=== PATIENT | female | born 1990 | race Caucasian/White ===

== ENCOUNTER 2016-11-01 09:28 | Emergency (ER) | payer OTHER ==
[~2016-11-01] VITALS: Ht 167.6 cm; Wt 83.9 kg
[~2016-11-01 09:28] MED LIST: CATAPRES0.1 MG PO; FIORICET WI1 CAPSULE PO; IBUPROFEN800 MG PO; MACROBID100 MG PO; MOTRIN800 MG PO; PROMETHAZINE HC25 M1 PO; PROVERA,CYCRIN5 MG PO; RISPERDAL0.25 MG PO; VISTARIL25 MG PO; ~No Medications
[2016-11-01] MEDS ORDERED: ANUSOL HC,ANUCO25 MG PR (11:02)
[2016-11-01] MEDS ORDERED: COLACE100 MG PO (11:03)
[2016-11-01 11:18] VITALS: BP 123/64
== END 2016-11-01 11:18 | disposition home or self-care (01) ==
LOC: EME 09:28
DX: K64.4 Residual hemorrhoidal skin tags (principal); F17.200 Nicotine dependence, unspecified, uncomplicated
CPT/HCPCS: 99281; 99284

== ENCOUNTER 2016-11-17 13:06 | Day surgery (SDC) | payer OTHER ==
[~2016-11-17] VITALS: Ht 167.6 cm; Wt 83.0 kg
[~2016-11-17 13:06] MED LIST changes: +ANUSOL HC,ANUCO25 MG PR; +COLACE100 MG PO
[2016-11-17 13:38] VITALS: BP 104/60
[2016-11-17 13:45] LABS: EOSINOPHIL (%) 1.4 % (0-5); EOSINOPHIL COUNT 0.1 K/uL (0-0.3); HEMATOCRIT 36.9 % (36.0-46.0); IMMATURE GRANULOCYTE (%) 0.3 % (0.0-0.7); LYMPHOCYTE COUNT 1.8 K/uL (1.0-2.8); MCH 30.8 PG (29.0-34.0); MCHC 33.6 G/DL (30.0-36.0); MCV 91.8 FL (83-99); MEAN PLAT.VOLUME 10.8 uM^3 (9.5-12.4); MONOCYTE (%) 6.7 % (3-12); MONOCYTE COUNT 0.4 K/uL (0-0.8); NEUTROPHIL (%) 62.5 % (45-76); PLATELET COUNT 227 K/uL (156-360); RBC DIS.WIDTH-CV 11.9 % (11.8-14.6); RBC DIS.WIDTH-SD 39.8 % (39-53); RED BLOOD COUNT 4.02 M/uL (3.80-5.20); WHITE BLOOD COUNT 6.4 K/uL (4.1-10.2)
[2016-11-17 13:54] LABS: INTER. NORMALIZED RATIO 1.1; PROTHROMBIN TIME 10.7 (9.2-11.2)
[2016-11-17 14:00] LABS: ANION GAP 6 MEQ/L (2-14); CHLORIDE 105 MEQ/L (99-109); POTASSIUM 3.7 MEQ/L (3.7-5.4); SAMPLE HEMOLYSIS CHECK 0; SAMPLE ICTERIC CHECK 0; SAMPLE LIPEMIA CHECK 0; SODIUM 138 MEQ/L (136-147); TOTAL BILIRUBIN 1.2 MG/DL (0.0-1.0)
[2016-11-17 14:06] LABS: ALKALINE PHOSPHATASE 65 IU/L (3-129); GFR ESTIMATE (CALCULATED) > 59 mL/min/; GLUCOSE 82 mg/dL (70-99); UREA NITROGEN (BUN) 11 mg/dL (9-23)
[2016-11-17 14:52] LABS: METH RESISTANT S AUREUS PCR NEGATIVE (NEGATIVE)
[2016-11-17 14:54] LABS: PROBE CHECK PASS; SPECIMEN PROCESSING CONTROL PASS
[2016-11-17] MEDS ORDERED: COLACE100 MG PO (15:32)
[2016-11-17] MEDS ORDERED: METAMUCIL PACKE1 PKT PO (15:32)
[2016-11-17 16:30] VITALS: BP 110/66
[2016-11-17 17:00] VITALS: BP 111/58
[2016-11-18 09:19] LABS: INTERNAL CONTROL VALID? YES
== END 2016-11-17 17:25 | disposition home or self-care (01) ==
LOC: SDC 13:06
PROVIDERS: Thoracic Surgery (Cardiothoracic Vascular Surgery)
DX: K64.8 Other hemorrhoids (principal); K64.4 Residual hemorrhoidal skin tags; F17.210 Nicotine dependence, cigarettes, uncomplicated; Z85.41 Personal history of malignant neoplasm of cervix uteri; Z82.3 Family history of stroke
CPT/HCPCS: 80053; 84703; 85025; 85610; 87641; J0690; J1100; J2250; J2405; J3010

== ENCOUNTER 2017-04-25 21:23 | Emergency (ER) | payer OTHER ==
[~2017-04-25] VITALS: Ht 170.2 cm; Wt 77.7 kg
[~2017-04-25 21:23] MED LIST changes: +METAMUCIL PACKE1 PKT PO
[2017-04-25 22:03] LABS: HEMATOCRIT 39.7 % (36.0-46.0); MCH 31.5 PG (29.0-34.0); MCV 92.5 FL (83-99); MEAN PLAT.VOLUME 10.7 uM^3 (9.5-12.4); PLATELET COUNT 262 K/uL (156-360); RBC DIS.WIDTH-CV 12.3 % (11.8-14.6); RED BLOOD COUNT 4.29 M/uL (3.80-5.20); WHITE BLOOD COUNT 7.4 K/uL (4.1-10.2)
[2017-04-25 22:31] LABS: ANION GAP 9 MEQ/L (2-14); CHLORIDE 105 MEQ/L (99-109); POTASSIUM 3.9 MEQ/L (3.7-5.4); SAMPLE HEMOLYSIS CHECK 0; SAMPLE ICTERIC CHECK 0; SAMPLE LIPEMIA CHECK 0; SODIUM 140 MEQ/L (136-147); TOTAL BILIRUBIN 0.5 MG/DL (0.0-1.0)
[2017-04-25 22:37] LABS: ALKALINE PHOSPHATASE 71 IU/L (3-129); GFR ESTIMATE (CALCULATED) > 59 mL/min/; GLUCOSE 84 mg/dL (70-99); UREA NITROGEN (BUN) 13 mg/dL (9-23)
[2017-04-25 22:39] LABS: QUANTITATIVE HCG < 4.0 MIU/ML
[2017-04-26] MEDS ORDERED: ZANTAC150 MG PO (01:12)
[2017-04-26 01:34] VITALS: BP 126/80
== END 2017-04-26 01:38 | disposition home or self-care (01) ==
LOC: EME 21:23
DX: K29.70 Gastritis, unspecified, without bleeding (principal); F17.200 Nicotine dependence, unspecified, uncomplicated; Z71.6 Tobacco abuse counseling; R05 Cough; Z83.2 Family history of diseases of the blood and blood-forming organs and certain disorders involving the immune mechanism
CPT/HCPCS: 71275; 80053; 81003; 84702; 85027; 99281; 99284

== ENCOUNTER 2017-07-09 21:51 | Emergency (ER) | payer OTHER ==
[~2017-07-09] VITALS: Ht 170.2 cm; Wt 74.1 kg
[~2017-07-09 21:51] MED LIST changes: +ZANTAC150 MG PO
[2017-07-09] MEDS ORDERED: NAPROSYN500 MG PO (23:33)
[2017-07-09 23:56] VITALS: BP 102/78
== END 2017-07-09 23:56 | disposition home or self-care (01) ==
LOC: EME 21:51
DX: S93.401A Sprain of unspecified ligament of right ankle, initial encounter (principal); S93.601A Unspecified sprain of right foot, initial encounter; W10.9XXA Fall (on) (from) unspecified stairs and steps, initial encounter; F17.200 Nicotine dependence, unspecified, uncomplicated
CPT/HCPCS: 73610; 73630; 99281; 99283

== ENCOUNTER 2017-10-14 12:51 | Emergency (ER) | payer OTHER ==
[~2017-10-14] VITALS: Ht 167.6 cm; Wt 73.7 kg
[~2017-10-14 12:51] MED LIST changes: +NAPROSYN500 MG PO
[2017-10-14 13:24] LABS: HEMATOCRIT 39.4 % (36.0-46.0); HEMOGLOBIN 13.6 G/DL (11.9-15.5); MCH 32.1 PG (29.0-34.0); MCHC 34.5 G/DL (30.0-36.0); MCV 92.9 FL (83-99); PLATELET COUNT 217 K/uL (156-360); RBC DIS.WIDTH-CV 11.9 % (11.8-14.6); RBC DIS.WIDTH-SD 40.9 % (39-53); RED BLOOD COUNT 4.24 M/uL (3.80-5.20); WHITE BLOOD COUNT 7.4 K/uL (4.1-10.2)
[2017-10-14 13:33] LABS: ALBUMIN 4.3 g/dL (3.2-4.8); CHLORIDE 105 mEq/L (99-109); POTASSIUM 3.8 mEq/L (3.7-5.4); SODIUM 138 mEq/L (136-147)
[2017-10-14 13:36] LABS: GLUCOSE 89 mg/dL (70-99)
[2017-10-14 13:38] LABS: TOTAL BILIRUBIN 1.1 mg/dL (0.0-1.0)
[2017-10-14 13:39] LABS: ALKALINE PHOSPHATASE 70 IU/L (3-129); CREATININE 0.8 mg/dL (0.6-1.3); GFR ESTIMATE (CALCULATED) > 59 mL/min/
[2017-10-14 13:40] LABS: UREA NITROGEN (BUN) 9 mg/dL (9-23)
[2017-10-14 13:41] LABS: AST (GOT) 15 IU/L (2-34)
[2017-10-14 13:42] LABS: ALT (GPT) 11 IU/L (3-49)
[2017-10-14 13:43] LABS: LIPASE 24 U/L (1.0-51.0)
[2017-10-14 13:49] LABS: QUANTITATIVE HCG 125.4 MIU/ML
[2017-10-14] MEDS ORDERED: PRILOSEC20 MG PO (14:45)
[2017-10-14 15:20] VITALS: BP 111/63
== END 2017-10-14 15:22 | disposition home or self-care (01) ==
LOC: EME 12:51
DX: O26.91 Pregnancy related conditions, unspecified, first trimester (principal); R10.13 Epigastric pain; O99.341 Other mental disorders complicating pregnancy, first trimester; F41.9 Anxiety disorder, unspecified; O99.331 Smoking (tobacco) complicating pregnancy, first trimester; F17.200 Nicotine dependence, unspecified, uncomplicated
CPT/HCPCS: 80053; 81003; 83690; 84702; 85027; 99281; 99284

== ENCOUNTER 2018-02-11 21:27 | Emergency (ER) | payer OTHER ==
[~2018-02-11] VITALS: Ht 167.6 cm; Wt 77.4 kg
[~2018-02-11 21:27] MED LIST changes: +PRILOSEC20 MG PO
[2018-02-11 21:57] LABS: HEMATOCRIT 35.4 % (36.0-46.0); HEMOGLOBIN 12.4 G/DL (11.9-15.5); MCH 32.4 PG (29.0-34.0); MCV 92.4 FL (83-99); PLATELET COUNT 254 K/uL (156-360); RBC DIS.WIDTH-CV 11.6 % (11.8-14.6); RBC DIS.WIDTH-SD 39.3 % (39-53); RED BLOOD COUNT 3.83 M/uL (3.80-5.20); WHITE BLOOD COUNT 7.7 K/uL (4.1-10.2)
[2018-02-11 22:17] LABS: CHLORIDE 106 mEq/L (99-109); POTASSIUM 3.8 mEq/L (3.7-5.4); SODIUM 138 mEq/L (136-147)
[2018-02-11 22:19] LABS: GLUCOSE 91 mg/dL (70-99)
[2018-02-11 22:23] LABS: CREATININE 0.8 mg/dL (0.6-1.3); GFR ESTIMATE (CALCULATED) > 59 mL/min/
[2018-02-11 22:24] LABS: UREA NITROGEN (BUN) 13 mg/dL (9-23)
[2018-02-11 22:25] LABS: CREATINE KINASE 110 IU/L (1-294)
[2018-02-11 22:40] LABS: ALBUMIN 4.3 g/dL (3.2-4.8)
[2018-02-11 22:43] LABS: TOTAL PROTEIN 7.4 g/dL (6.4-8.3)
[2018-02-11 22:45] LABS: TOTAL BILIRUBIN 0.5 mg/dL (0.0-1.0)
[2018-02-11 22:46] LABS: ALKALINE PHOSPHATASE 73 IU/L (3-129)
[2018-02-11 22:48] LABS: AST (GOT) 20 IU/L (2-34); DIRECT BILIRUBIN 0.2 mg/dL (0.0-0.3)
[2018-02-11 22:49] LABS: ALT (GPT) 18 IU/L (3-49); LIPASE 31 U/L (1.0-51.0)
[2018-02-11 23:07] VITALS: BP 128/90
== END 2018-02-11 23:08 | disposition home or self-care (01) ==
LOC: EME 21:27
PROVIDERS: Physician Assistant
DX: R25.2 Cramp and spasm (principal); M79.605 Pain in left leg; F41.9 Anxiety disorder, unspecified; F17.200 Nicotine dependence, unspecified, uncomplicated
CPT/HCPCS: 80048; 80076; 82550; 83690; 85027; 93971; 99281; 99284